=== PATIENT | female | born 1970 | race American Indian/Alaskan Native ===

== ENCOUNTER 2018-10-19 11:19 | Emergency (ER) | payer OTHER ==
--- NOTE | 2018-10-19 11:33 | Emergency Department Report ---
Blank Doc - Documentation Documentation: This is a 48-year-old female that presents with left sided chest pain with rad iation to left arm and neck area. Denies any SOB. This initial assessment/diagnostic orders/clinical plan/treatment(s) is/are subject to change based on patient's health status, clinical progression and re- assessment by fellow clinical providers in the ED. Further treatment and workup at subsequent clinical providers discretion. Patient/guardians urged not to elope from the ED as their condition may be serious if not clinically assessed and managed. Initial orders include: 1- Patient sent to [facility] for further evaluation and treatment 2- labs 3- EKG 4- CXR
[2018-10-19 12:14] LABS: Basophils % (Auto) 0.6 % (0.0-1.8); Eosinophils # (Auto) 0.1 K/mm3 (0.0-0.4); Eosinophils % (Auto) 2.1 % (0.0-4.3); Hematocrit 34.5 % (30.3-42.9); Hemoglobin 11.2 gm/dl (10.1-14.3); Lymphocytes # (Auto) 1.7 K/mm3 (1.2-5.4); Mean Corpuscular HGB Conc 33 % (30-34); Mean Corpuscular Volume 79 fl (79-97); Monocytes # (Auto) 0.3 K/mm3 (0.0-0.8); Monocytes % (Auto) 4.9 % (0.0-7.3); Platelet Count 303 K/mm3 (140-440); Red Blood Count 4.35 M/mm3 (3.65-5.03)
[2018-10-19 12:20] LABS: Red Cell Distribution Width 21.3 % (13.2-15.2)
[2018-10-19 12:25] LABS: INR 0.97 (0.87-1.13)
[2018-10-19 12:26] LABS: Partial Thromboplastin Time 27.5 Sec. (24.2-36.6)
[2018-10-19 12:31] LABS: BUN/Creatinine Ratio 13; Blood Urea Nitrogen 8 mg/dL (7-17); Calcium 8.9 mg/dL (8.4-10.2); Hemolysis Index 7
--- NOTE | 2018-10-19 13:43 | XRay Report ---
CHEST 2 VIEWS INDICATION: Left-sided chest pain. COMPARISON: None FINDINGS: Support devices: None. Heart: Within normal limits. Lungs/pleura: No acute air space or interstitial disease. No pneumothorax. Additional findings: None. IMPRESSION: No acute findings. Signer Name: Noam Alvarez Jr, MD Signed: 10/19/2018 1:39 PM Workstation Name: [id number]
--- NOTE | 2018-10-19 13:48 | Emergency Department Report ---
ED Chest Pain HPI - General Chief Complaint: Chest Pain Stated Complaint: CHEST PAIN/LT ARM NUMB Time Seen by Provider: 10/19/18 11:31 Source: patient Mode of arrival: Ambulatory Limitations: No Limitations - History of Present Illness Initial Comments: 48-year-old female presents to ED with complaint of intermittent, left-sided chest pain. Patient reports onset yesterday while driving. Patient reports she isn't having intermittent chest pain over the last month, but yesterday was worse than before. Patient reports radiating pain into the left arm and neck. Patient also reports associated nausea, denies vomiting. Patient denies diaphoresis, shortness of breath, lower extremity pain or swelling. Patient denies ever having a stress test. Denies tobacco and drug use. MD Complaint: chest pain -: days(s) (1) Onset: during rest Pain Location: left chest Pain Radiation: LUE, neck Severity: moderate Quality: pressure Consistency: intermittent Improves With: nothing Worsens With: nothing re: nausea. denies: vomting, diaphoresis, dyspnea Other Symptoms: cough. denies: fever, leg swelling - Related Data Previous Rx's Medication Instructions Recorded Last Taken Type Aspirin [Adult Aspirin] 81 mg PO DAILY #15 tablet. 10/19/18 Unknown Rx AtorvaSTATin [Lipitor] 20 mg PO QHS #15 tablet 10/19/18 Unknown Rx Ferrous Sulfate [Feosol 325 MG tab] 325 mg PO QDAY #15 tablet 10/19/18 Unknown Rx Losartan [Cozaar] 50 mg PO QDAY #15 tablet 10/19/18 Unknown Rx Omeprazole 40 mg PO BID #30 capsule. 10/19/18 Unknown Rx dilTIAZem CD [Cardizem CD] 180 mg PO QDAY #15 capsule 10/19/18 Unknown Rx raNITIdine HCl [Zantac] 150 mg PO DAILY #15 tablet 10/19/18 Unknown Rx Allergies Allergy/AdvReac Type Severity Reaction Status Date / Time shellfish derived Allergy Anaphylaxis Verified 10/19/18 11:20 sulfamethoxazole Allergy Hives Verified 10/19/18 11:20 [From Bactrim] trimethoprim [From Bactrim] Allergy Hives Verified 10/19/18 11:20 Heart Score - HEART Score History: Slightly suspicious EKG: Normal Age: 45-65 Risk factors: 1-2 risk factors Troponin: < normal limit HEART Score: 2 ED Review of Systems ROS: Stated complaint: CHEST PAIN/LT ARM NUMB Other details as noted in HPI Comment: All other systems reviewed and negative Constitutional: denies: chills, fever Respiratory: cough. denies: shortness of breath Cardiovascular: chest pain Gastrointestinal: nausea. denies: abdominal pain, vomiting Musculoskeletal: other (denies lower extremity pain or swelling) ED Past Medical Hx - Past Medical History Previous Medical History?: Yes Hx Hypertension: Yes Hx GERD: Yes Additional medical history: anemia. high cholestrol - Surgical History Past Surgical History?: No - Social History Smoking Status: Never Smoker Substance Use Type: None - Medications Home Medications: Home Medications Medication Instructions Recorded Confirmed Last Taken Type Aspirin [Adult Aspirin] 81 mg PO DAILY #15 tablet. 10/19/18 Unknown Rx AtorvaSTATin [Lipitor] 20 mg PO QHS #15 tablet 10/19/18 Unknown Rx Ferrous Sulfate [Feosol 325 MG tab] 325 mg PO QDAY #15 tablet 10/19/18 Unknown Rx Losartan [Cozaar] 50 mg PO QDAY #15 tablet 10/19/18 Unknown Rx Omeprazole 40 mg PO BID #30 capsule. 10/19/18 Unknown Rx dilTIAZem CD [Cardizem CD] 180 mg PO QDAY #15 capsule 10/19/18 Unknown Rx raNITIdine HCl [Zantac] 150 mg PO DAILY #15 tablet 10/19/18 Unknown Rx ED Physical Exam - General Limitations: No Limitations General appearance: alert, in no apparent distress - Head Head exam: Present: atraumatic, normocephalic - Eye Eye exam: Present: normal appearance, PERRL, EOMI - ENT ENT exam: Present: mucous membranes moist - Neck Neck exam: Present: normal inspection - Respiratory Respiratory exam: Present: normal lung sounds bilaterally. Absent: respiratory distress - Cardiovascular Cardiovascular Exam: Present: regular rate, normal rhythm - GI/Abdominal GI/Abdominal exam: Present: soft. Absent: distended, tenderness - Extremities Exam Extremities exam: Present: normal inspection. Absent: pedal edema, calf tenderness - Neurological Exam Neurological exam: Present: alert, oriented X3 - Psychiatric Psychiatric exam: Present: normal affect, normal mood - Skin Skin exam: Present: warm, dry, intact, normal color ED Course Vital Signs 10/19/18 10/19/18 10/19/18 11:32 13:57 15:00 Temperature 98.3 F 97.9 F Pulse Rate 73 58 L 59 L Respiratory 20 14 16 Rate Blood Pressure 143/85 Blood Pressure 145/86 147/61 [Right] O2 Sat by Pulse 99 97 98 Oximetry 10/19/18 10/19/18 16:00 18:08 Temperature 97.7 F Pulse Rate 60 62 Respiratory 14 14 Rate Blood Pressure Blood Pressure 143/89 143/89 [Right] O2 Sat by Pulse 100 100 Oximetry ED Medical Decision Making - Lab Data Result diagrams: 10/19/18 11:53 10/19/18 11:53 - EKG Data -: EKG Interpreted by [facility] EKG shows normal: sinus rhythm, axis, intervals, QRS complexes, ST-T waves Rate: normal - EKG Data Interpretation: no acute changes - Radiology Data Radiology results: report reviewed, image reviewed - Medical Decision Making 47-year-old female with 1 month history of intermittent chest pain, worsening since yesterday. Patient reported its pressure-like discomfort, with radiation into the neck and left arm. EKG shows no acute ST changes, possible old anterior infarct present. Troponin negative. Will admit to hospitalist for further evaluation. - Differential Diagnosis ACS, pneumonia, GERD Critical care attestation.: If time is entered above; I have spent that time in minutes in the direct care of this critically ill patient, excluding procedure time. ED Disposition Clinical Impression: Acute chest pain Disposition: OP ADMIT IP TO THIS HOSP Is pt being admited?: Yes Condition: Stable Instructions: Chest Pain (ED) Prescriptions: AtorvaSTATin [Lipitor] 20 mg PO QHS #15 tablet Aspirin [Adult Aspirin] 81 mg PO DAILY #15 tablet. dilTIAZem CD [Cardizem CD] 180 mg PO QDAY #15 capsule Losartan [Cozaar] 50 mg PO QDAY #15 tablet Ferrous Sulfate [Feosol 325 MG tab] 325 mg PO QDAY #15 tablet Omeprazole 40 mg PO BID #30 capsule. raNITIdine HCl [Zantac] 150 mg PO DAILY #15 tablet Referrals: JOSH WARNER MD [Primary Care Provider] - 3-5 Days Forms: Work/School Release Form(ED) Time of Disposition: 15:20
[2018-10-19] MEDS ORDERED: ASPIRIN PO ONE (14:03)
[2018-10-19] MEDS ORDERED: PROTONIX PO ONE (15:13)
--- NOTE | 2018-10-19 16:45 | Cat Scan Report ---
CTA chest with contrast INDICATION : pain. Acute generalized chest pain TECHNIQUE: Axial imaging performed through the chest, with contrast bolus timing set to maximize opa cification of the pulmonary arteries. 3-plane MIP reformatted images were obtained. All CT scans at this location are performed using CT dose reduction for ALARA by means of automated exposure control. 100 mL of intravenous contrast administered. COMPARISON: None FINDINGS: Bolus: Contrast bolus timing is adequate. PTE: No filling defect is present to suggest PTE. Mediastinum: Heart and great vessels appear normal. No pathologic mediastinal adenopathy. Lungs: Lungs are clear. Upper abdomen: Limited imaging of the upper abdomen shows nothing acute. Bones: Degenerative changes in the spine with nothing acute. IMPRESSION: Negative for PTE. Clear lungs. Signer Name: Horacio Sultana MD Signed: 10/19/2018 4:40 PM Workstation Name: [id number]
--- NOTE | 2018-10-19 17:03 | Event Note ---
Date: 10/19/18 47 YO Female presents to ED for Atypical chest pain. Pt treated IAW Chest pain protocol. Serial cardiac enzymes, ekg, telemetry were unremarkable. CTA chest was negative for PE. Pt treated with PPI therapy with improvement in symptoms. Pt medically optimized and back to her usual state of health. Pt discharged home and instructed to f/u with PCP within 3-5 days, and Cardiology 3-5 days for further testing. ED Physical Exam - General Limitations: No Limitations General appearance: alert, in no apparent distress - Head Head exam: Present: atraumatic, normocephalic - Eye Eye exam: Present: normal appearance, PERRL, EOMI - ENT ENT exam: Present: mucous membranes moist - Neck Neck exam: Present: normal inspection - Respiratory Respiratory exam: Present: normal lung sounds bilaterally. Absent: respiratory distress - Cardiovascular Cardiovascular Exam: Present: regular rate, normal rhythm - GI/Abdominal GI/Abdominal exam: Present: soft. Absent: distended, tenderness - Extremities Exam Extremities exam: Present: normal inspection. Absent: pedal edema, calf tenderness - Neurological Exam Neurological exam: Present: alert, oriented X3 - Psychiatric Psychiatric exam: Present: normal affect, normal mood - Skin Skin exam: Present: warm, dry, intact, normal color
[2018-10-19 18:05] VITALS: BP 143/89
== END 2018-10-19 18:09 | disposition admitted as inpatient to this hospital (09) ==
LOC: ED 11:19 → EDBD 11:19 → ED 18:09
DX: R07.9 Chest pain, unspecified (principal); I10 Essential (primary) hypertension; K21.9 Gastro-esophageal reflux disease without esophagitis; E78.00 Pure hypercholesterolemia, unspecified; Z88.2 Allergy status to sulfonamides; Z88.8 Allergy status to other drugs, medicaments and biological substances; Z79.899 Other long term (current) drug therapy
CPT/HCPCS: 36415; 71046; 71275; 80048; 84484; 84703; 85025; 85610; 85730; 93005; 93010; 99285; Q9967